=== PATIENT | male | born 2000 | race Caucasian/White ===

== ENCOUNTER 2022-10-06 08:42 | Emergency (ER) | payer BC ==
[~2022-10-06] VITALS: Ht 165.1 cm; Wt 149.7 kg
[2022-10-06 09:01] VITALS: BP_SYST 142
[2022-10-06] MEDS ORDERED: POLY119P2 PO (09:35)
[2022-10-06] MEDS ORDERED: PHEN1SUP42 RC (09:35)
[2022-10-06] MEDS ORDERED: IBUP-1970 PO (09:35)
[2022-10-06 10:30] VITALS: BP_SYST 144
[2022-10-07] MEDS ORDERED: SULF1TAB48 PO (10:56)
== END 2022-10-06 10:00 | disposition home or self-care (01) ==
LOC: SED 08:42
DX: K64.8 Other hemorrhoids (principal); K62.89 Other specified diseases of anus and rectum; Z79.899 Other long term (current) drug therapy
CPT/HCPCS: 99282

== ENCOUNTER 2022-10-07 09:35 | Emergency (ER) | payer BC ==
[~2022-10-07] VITALS: Ht 180.3 cm; Wt 180.1 kg
[~2022-10-07 09:35] MED LIST: IBUP-1970 PO; PHEN1SUP42 RC; POLY119P2 PO
[2022-10-07 09:45] VITALS: BP_SYST 133
[2022-10-07] MEDS ORDERED: KETOROLAC TROMETHAMINE 15 MG VIAL IM ONE (10:30)
[2022-10-07] MEDS ORDERED: HYDROcodone/ACETAMIN 5-325 MG TAB (NORCO/ VICODIN) PO ONE (10:30)
[2022-10-07] MEDS ORDERED: SULF1TAB48 PO (10:56)
[2022-10-07 12:00] VITALS: BP_SYST 132
== END 2022-10-07 10:35 | disposition home or self-care (01) ==
LOC: SED 09:35
DX: K61.0 Anal abscess (principal); K62.89 Other specified diseases of anus and rectum; Z79.899 Other long term (current) drug therapy
CPT/HCPCS: 46050; 99284; 96372; J1885